=== PATIENT | female | born 1965 | race Caucasian/White ===

== ENCOUNTER 2020-07-25 14:20 | Emergency (ER) | payer BC ==
[~2020-07-25] VITALS: Ht 162.6 cm; Wt 60.0 kg
[2020-07-25] MEDS ORDERED: GENTAK0.32 OD (14:58)
[2020-07-25 15:05] VITALS: BP 116/64
== END 2020-07-25 15:05 | disposition home or self-care (01) | DRG 115 ==
LOC: ED 14:20
PROC: 08C8XZZ Extirpation of Matter from Right Cornea, External Approach (ICD-10-PCS; principal; 2020-07-25)
DX: T15.01XA Foreign body in cornea, right eye, initial encounter (principal); X58.XXXA Exposure to other specified factors, initial encounter; Y93.H2 Activity, gardening and landscaping